=== PATIENT | female | born 1965 | race Caucasian/White ===

== ENCOUNTER 2016-12-25 11:49 | Emergency (ER) | payer OTHER ==
--- NOTE | 2016-12-25 12:00 | EDPHY ---
H & P Stated Complaint: palpitations dizzy starting at 10am Time Seen by Provider: 12/25/16 11:59 - Personal History LMP (Females 10-55): Unknown Current Tetanus/Diphtheria Vaccine: Unsure Current Tetanus Diphtheria and Acellular Pertussis (TDAP): Unsure - Medical/Surgical History Hx Asthma: No Hx Chronic Respiratory Disease: No Hx Diabetes: No Hx Cardiac Disease: No Hx Renal Disease: No Hx Cirrhosis: No Hx Alcoholism: No Hx HIV/AIDS: No Hx Splenectomy or Spleen Trauma: No Other PMH: PFO with "patch "placed 2015. hyperlipidemia, asthma - Social History Smoking Status: Never smoked Constitutional: Initial Vital Signs Temperature (C) 37.0 C 12/25/16 11:51 Heart Rate 114 H 12/25/16 11:51 Respiratory Rate 16 12/25/16 11:51 Blood Pressure 147/82 H 12/25/16 11:51 O2 Sat (%) 98 12/25/16 11:51 O2 Delivery Mode Room Air Allergies/Adverse Reactions: aspirin Allergy (Verified 12/25/16 11:55) Home Medications: Medication Instructions Recorded Lipitor 12/25/16 Plavix 12/25/16 Topamax 12/25/16 Medical Decision Making ED Course/Re-evaluation: CHIEF COMPLAINT: Palpitations HISTORY OF PRESENT ILLNESS: Healthy 51-year-old female who was sitting in a meeting and felt rapid heartbeat for about 1 minutes at the most. During that 1 minutes. She felt lightheaded and dizzy and felt like she might even pass out. The rapid rhythm resolved abrupt in all of her other symptoms also resolved. She has not started any new medicines lately. She has no history of dysrhythmia her family. She does not have any thyroid dysfunction as far she knows. She had a similar episode 6 years ago. She was given a Holter monitor however they never were able to elucidate the etiology for her palpitations. Unfortunately 6 years ago she also had a small TIA but they found a patent foramen ovale which they have repaired in the animal laboratory helper at [facility] in [place]. She believes she had a heart catheterization at that time and clean coronary arteries. She no longer has any symptoms here. She has been kept on Plavix since her presentation with the TIA 6 years ago despite the closing of her patent PFO REVIEW OF SYSTEMS: A 10 point review of systems was performed and is negative with the exception of the elements mentioned in the history of present illness. PHYSICAL EXAM: HR, BP, O2 Sat, RR. Temp noted General Appearance: Alert, well hydrated, appropriate, and non-toxic appearing. Head: Atraumatic without scalp tenderness or obvious injury Eyes: Pupils equal, round, reactive to light and accommodation, EOMI, no trauma , no injection. Ears: Clear bilaterally, no perforation, normal landmarks Nose: Atraumatic, no rhinorrhea, clear. Throat: There is no erythema or exudates, no lesions, normal tonsils, mucus membranes moist. Neck: Supple, 2+ carotid upstroke, nontender, no lymphadenopathy. Respiratory: No retractions, no distress, no wheezes, and no accessory muscle use. Lungs are clear to auscultation bilaterally. Cardiovascular: Regular rate and rhythm, no murmurs, rubs, or gallops. Bilateral carotid, radial, dorsalis pedis, and posterior tibial pulses intact. Good capillary refill all extremities. Gastrointestinal: Abdomen is soft, nontender, non-distended, no masses, no rebound, no guarding, no peritoneal signs. Musculoskeletal: Normal active ROM of all extremities, atraumatic. Neurological: Alert, appropriate, and interactive. The patient has normal DTRs and non-focal cranial nerves, motor, sensory, and cerebellar exam. Skin: No rashes, good turgor, no nodules on palpation. Past medical history: PFO, mild aortic insufficiency, denies coronary artery disease, denies any specific dysrhythmia diagnosis Past surgical history: PFO closure and heart catheterization Family history: Noncontributory specifically for any rhythm problems or coronary artery problems Social history: , employed, does not abuse tobacco drugs or alcohol DIAGNOSTICS/PROCEDURES/CRITICAL CARE TIME: The 12 lead EKG was interpreted by myself. See hard copy and/or "tracemaster" electronic copy for interpretation. Sinus mechanism rate mid 80s with mild nonspecific T-wave abnormalities in the anterior lateral leads but otherwise unremarkable DIFFERENTIAL DIAGNOSIS: The differential diagnosis for the patient's palpitations included but was not limited to various causes of sinus tachycardia such as dehydration and medicines, SVT, atrial flutter, atrial fibrillation, pulmonary causes. MEDICAL DECISION MAKING: This patient had a very brief less than 1 minute episode of palpitations with some presyncopal type of symptomatology. Her symptoms are completely resolved now but she came here for further evaluation. Current EKG is sinus mechanism. I am awaiting laboratory studies. This patient most likely will need a Holter monitor or an event monitor. - Data Points Laboratory Results: Laboratory Results 12/25/16 12:05 12/25/16 12:05 12/25/16 12/25/16 12/25/16 Unknown 12:05 12:05 WBC 7.16 10^3/uL 10^3/uL (3.80-9.50) RBC 4.50 10^6/uL 10^6/uL (4.18-5.33) Hgb 14.2 g/dL g/dL (12.6-16.3) Hct 41.3 % % (38.0-47.0) MCV 91.8 fL fL (81.5-99.8) MCH 31.6 pg pg (27.9-34.1) MCHC 34.4 g/dL g/dL (32.4-36.7) RDW 12.1 % % (11.5-15.2) Plt Count 287 10^3/uL 10^3/uL (150-400) MPV 9.9 fL fL (8.7-11.7) Neut % (Auto) 62.7 % % (39.3-74.2) Lymph % (Auto) 28.4 % % (15.0-45.0) [place] % (Auto) 6.6 % % (4.5-13.0) Eos % (Auto) 1.3 % % (0.6-7.6) Baso % (Auto) 0.6 % % (0.3-1.7) Nucleat RBC Rel Count 0.0 % % (0.0-0.2) Absolute Neuts (auto) 4.50 10^3/uL 10^3/uL (1.70-6.50) Absolute Lymphs (auto) 2.03 10^3/uL 10^3/uL (1.00-3.00) Absolute Monos (auto) 0.47 10^3/uL 10^3/uL (0.30-0.80) Absolute Eos (auto) 0.09 10^3/uL 10^3/uL (0.03-0.40) Absolute Basos (auto) 0.04 10^3/uL 10^3/uL (0.02-0.10) Absolute Nucleated RBC 0.00 10^3/uL 10^3/uL (0-0.01) Immature Gran % 0.4 % % (0.0-1.1) Immature Gran # 0.03 10^3/uL 10^3/uL (0.00-0.10) Sodium 141 mEq/L mEq/L (134-144) Potassium 3.7 mEq/L mEq/L (3.5-5.2) Chloride 109 mEq/L mEq/L (97-110) Carbon Dioxide 22 mEq/l mEq/l (22-31) Anion Gap 10 mEq/L mEq/L (8-16) BUN 12 mg/dL mg/dL (7-23) Creatinine 0.8 mg/dL mg/dL (0.6-1.0) Estimated GFR > 60 Glucose 89 mg/dL mg/dL (70-100) Calcium 9.2 mg/dL mg/dL (8.5-10.4) Magnesium 1.9 mg/dL mg/dL (1.6-2.3) Troponin I < 0.012 ng/mL ng/mL (0.000-0.034) TSH Pending Departure - Departure Disposition: Home, Routine, Self-Care Clinical Impression: Palpitations Condition: Good Instructions: Palpitations (ED) Additional Instructions: Follow up with your [employer] re[employer] cutter in the next 2-3 days. Return to the ED for worsening of condition. Referrals: Elizabeth Lujan MD [Primary Care Provider] - As per Instructions [place] MD [Medical Doctor] - As per Instructions
--- NOTE | 2016-12-25 12:03 | CPEKG ---
Heart Rate: 88 RR Interval: 682 P-R Interval: 144 QRSD Interval: 92 QT Interval: 396 QTC Interval: 480 P Ranger: 43 QRS Ranger: 59 T Wave Ranger: 43 EKG Severity - BORDERLINE ECG - EKG Impression: SINUS RHYTHM EKG Impression: BORDERLINE T ABNORMALITIES, ANTERIOR LEADS Electronically Signed By: Duane Rodrigeuz 25-Dec-2016 13:00:54
[2016-12-25 12:21] LABS: % IMMATURE GRANULYOCYTES 0.4 % (0.0-1.1); ABSOLUTE IMMATURE GRANULOCYTES 0.03 10^3/uL (0.00-0.10); ADD DIFF? NO; ADD MORPH? NO; ADD SCAN? NO; ATYPICAL LYMPHOCYTE FLAG 0 (0-99); FRAGMENT RBC FLAG 0 (0-99); HEMATOCRIT 41.3 % (38.0-47.0); HEMOGLOBIN 14.2 g/dL (12.6-16.3); LEFT SHIFT FLG 0 (0-99); LIPEMIA HEMOLYSIS FLAG 90 (0-99); MEAN CELL HEMOGLOBIN 31.6 pg (27.9-34.1); MEAN CELL HEMOGLOBIN CONCENTR. 34.4 g/dL (32.4-36.7); MEAN CELL VOLUME 91.8 fL (81.5-99.8); MEAN PLATELET VOLUME 9.9 fL (8.7-11.7); PLATELET CLUMPS FLAG 0 (0-99); PLATELET COUNT 287 10^3/uL (150-400); RED CELL DISTRIBUTION WIDTH 12.1 % (11.5-15.2)
[2016-12-25 13:02] LABS: ANION GAP 10 mEq/L (8-16); CALCIUM 9.2 mg/dL (8.5-10.4); CARBON DIOXIDE 22 mEq/l (22-31); CHLORIDE 109 mEq/L (97-110); CREATININE 0.8 mg/dL (0.6-1.0); GLOMERULAR FILTRATION RATE > 60; GLUCOSE 89 mg/dL (70-100); MAGNESIUM 1.9 mg/dL (1.6-2.3); POTASSIUM 3.7 mEq/L (3.5-5.2); SODIUM 141 mEq/L (134-144)
[2016-12-25 13:12] LABS: TROPONIN I < 0.012 ng/mL (0.000-0.034)
[2016-12-25 13:57] VITALS: BP 108/67; PULSE 77; RESP 20; TEMP 98.1; O2SAT 97
== END 2016-12-25 13:57 | disposition home or self-care (01) ==
DX: R00.2 Palpitations (principal); J45.909 Unspecified asthma, uncomplicated